=== PATIENT | male | born 1990 | race Two or more races ===

== ENCOUNTER 2023-07-17 22:44 | Emergency (ER) | payer BC ==
[~2023-07-17] VITALS: Ht 180.3 cm; Wt 81.6 kg
[2023-07-17 23:00] VITALS: TEMP 97.9
[2023-07-18] MEDS ORDERED: ONDA4TAB5 PO (00:35)
[2023-07-18] MEDS ORDERED: IBUP-1957 PO (00:35)
[2023-07-18 02:47] VITALS: BP 144/85; O2SAT 99
== END 2023-07-18 02:47 | disposition home or self-care (01) ==
LOC: ER 22:46
DX: S09.90XA Unspecified injury of head, initial encounter (principal); F07.81 Postconcussional syndrome; V89.2XXA Person injured in unspecified motor-vehicle accident, traffic, initial encounter; Y93.89 Activity, other specified; Y92.89 Other specified places as the place of occurrence of the external cause; Y99.8 Other external cause status
CPT/HCPCS: 70450-TC; 72125-TC